=== PATIENT | female | born 1940 | race American Indian/Alaskan Native ===

== ENCOUNTER 2018-03-19 09:38 | Outpatient (CLI) | payer MEDICARE | END 2018-03-19 09:39 | disposition home or self-care (01) | LOC: C.MAMMO 09:38 | DX: Z12.31 Encounter for screening mammogram for malignant neoplasm of breast (principal) ==

== ENCOUNTER 2018-04-08 10:42 | Outpatient (CLI) | payer MEDICARE | END 2018-04-08 10:43 | disposition home or self-care (01) | LOC: C.USIC 10:42 | DX: R92.2 Inconclusive mammogram (principal) ==